=== PATIENT | male | born 1955 | race Caucasian/White ===

== ENCOUNTER → 2016-08-10 | Outpatient (CLI) | payer OTHER ==
--- NOTE | 2016-08-10 15:20 | DX ---
PA and Lateral Chest X-Ray 1437 hours History: Cough and fever for 3 days. Possible bronchitis. Rule out pneumonia. Comparison to December 09, 2013. Findings: Heart size and pulmonary vasculature are normal. There is decreased inspiration when comp ared to the prior study. There is peribronchial cuffing seen in the perihilar region and prominence o f perihilar interstitial markings. There are no peripheral infiltrates or effusions. Osseous structur es are intact. Impression: Prominence of perihilar interstitial markings and peribronchial cuffing. Findings are non specific but can be seen with bronchitis, reactive airway disease, or viral process.
== END ==
LOC: BMCIMAGING 14:34
PROVIDERS: ATTEND Internal Medicine
DX: R05 Cough (principal); R50.9 Fever, unspecified

== ENCOUNTER → 2016-10-30 | Outpatient (CLI) | payer OTHER | LOC: FIMAGING 11:18 | PROVIDERS: ATTEND Physical Medicine & Rehabilitation | DX: S32.030A Wedge compression fracture of third lumbar vertebra, initial encounter for closed fracture (principal); R93.7 Abnormal findings on diagnostic imaging of other parts of musculoskeletal system; M25.78 Osteophyte, vertebrae; M54.9 Dorsalgia, unspecified | CPT/HCPCS: 78320; A9503 ==